=== PATIENT | female | born 1950 | race Caucasian/White ===

== ENCOUNTER → 2017-05-26 | Outpatient (CLI) | payer OTHER ==
[2017-05-26 08:40] LABS: BASOPHILS # (AUTO) 0.1 X10^3/uL (0.0-0.1); BASOPHILS % (AUTO) 0.7 % (0.2-1.0); EOSINOPHILS # (AUTO) 0.2 x10^3/uL (0.0-0.2); EOSINOPHILS % (AUTO) 1.6 % (0.9-2.9); HEMATOCRIT 37.5 % (36.0-47.0); HEMOGLOBIN 12.5 g/dL (12.0-16.0); LYMPHOCYTES # (AUTO) 2.2 X10^3/uL (1.3-2.9); LYMPHOCYTES % (AUTO) 21.5 % (21.0-51.0); MEAN CORPUSCULAR HEMOGLOBIN 27.2 pg (27.0-34.0); MEAN CORPUSCULAR HGB CONC 33.5 g/dL (33.0-35.0); MEAN CORPUSCULAR VOLUME 81.3 fL (80.0-100.0); MEAN PLATELET VOLUME 8.3 fL (7.4-11.0); MONOCYTES # (AUTO) 0.8 x10^3/uL (0.3-0.8); MONOCYTES % (AUTO) 7.5 % (0.0-13.0); NEUTROPHILS # (AUTO) 7.2 x10^3/uL (2.2-4.8); NEUTROPHILS % (AUTO) 68.7 % (42.0-75.0); PLATELET COUNT 228 X10^3/uL (150.0-450.0); RED BLOOD COUNT 4.61 X10^6/uL (3.5-5.4); RED CELL DISTRIBUTION WIDTH 14.2 % (11.6-16.5); WHITE BLOOD COUNT 10.5 X10^3/uL (3.6-10.0)
[2017-05-26 08:55] LABS: ALANINE AMINOTRANSFERASE 24 Units/L (12-78); ALBUMIN 3.6 g/dL (3.4-5.0); ALKALINE PHOSPHATASE 94 Units/L (46-116); ASPARTATE AMINO TRANSFERASE 19 Units/L (15-37); BLOOD UREA NITROGEN 19 mg/dL (7-18); CALCIUM 8.6 mg/dL (8.5-10.1); CARBON DIOXIDE 29.5 mmol/L (21-32); CHLORIDE 105 mmol/L (98-107); CHOL/HDL RATIO 4.4 (0.0-5.0); CHOLESTEROL 203 mg/dL (0-200); CREATININE 1.15 mg/dL (0.55-1.02); GLUCOSE 108 mg/dL (65-99); HDL CHOLESTEROL 46 mg/dL (40-60); SODIUM 141 mmol/L (136-145); TOTAL PROTEIN 7.7 g/dL (6.4-8.2); TRIGLYCERIDES 95 mg/dL (0-150); eGFR BLACK RACES > 60 (>60); eGFR NON BLACK RACES 50 (>60)
== END ==
LOC: LAB 08:27
PROVIDERS: ATTEND Nurse Practitioner Family
DX: E78.4 Other hyperlipidemia (principal); I10 Essential (primary) hypertension
CPT/HCPCS: 36415; 80053; 80061; 85025

== ENCOUNTER → 2017-08-21 | Outpatient (CLI) | payer OTHER ==
[2017-08-21 08:36] LABS: BASOPHILS # (AUTO) 0.1 X10^3/uL (0.0-0.1); BASOPHILS % (AUTO) 0.9 % (0.2-1.0); EOSINOPHILS # (AUTO) 0.2 x10^3/uL (0.0-0.2); EOSINOPHILS % (AUTO) 1.5 % (0.9-2.9); HEMATOCRIT 35.5 % (36.0-47.0); HEMOGLOBIN 11.8 g/dL (12.0-16.0); LYMPHOCYTES # (AUTO) 2.5 X10^3/uL (1.3-2.9); LYMPHOCYTES % (AUTO) 23.2 % (21.0-51.0); MEAN CORPUSCULAR HEMOGLOBIN 27.7 pg (27.0-34.0); MEAN CORPUSCULAR HGB CONC 33.3 g/dL (33.0-35.0); MEAN CORPUSCULAR VOLUME 83.1 fL (80.0-100.0); MEAN PLATELET VOLUME 8.5 fL (7.4-11.0); MONOCYTES # (AUTO) 0.6 x10^3/uL (0.3-0.8); NEUTROPHILS # (AUTO) 7.4 x10^3/uL (2.2-4.8); NEUTROPHILS % (AUTO) 68.4 % (42.0-75.0); PLATELET COUNT 260 X10^3/uL (150.0-450.0); RED BLOOD COUNT 4.27 X10^6/uL (3.5-5.4); RED CELL DISTRIBUTION WIDTH 14.5 % (11.6-16.5); WHITE BLOOD COUNT 10.8 X10^3/uL (3.6-10.0)
[2017-08-21 08:45] LABS: ALBUMIN 3.3 g/dL (3.4-5.0); BLOOD UREA NITROGEN 15 mg/dL (7-18); CALCIUM 9.1 mg/dL (8.5-10.1); CARBON DIOXIDE 29.3 mmol/L (21-32); CHLORIDE 105 mmol/L (98-107); CHOL/HDL RATIO 3.3 (0.0-5.0); CHOLESTEROL 140 mg/dL (0-200); COR CA(FOR HYPOALB) 9.7 mg/dL (8.5-10.1); CREATININE 1.12 mg/dL (0.55-1.02); HDL CHOLESTEROL 43 mg/dL (40-60); SODIUM 143 mmol/L (136-145); TRIGLYCERIDES 98 mg/dL (0-150); eGFR BLACK RACES > 60 (>60); eGFR NON BLACK RACES 51 (>60)
== END ==
LOC: LAB 08:11
PROVIDERS: ATTEND Nurse Practitioner Family
DX: E78.4 Other hyperlipidemia (principal); I10 Essential (primary) hypertension
CPT/HCPCS: 36415; 80061; 80069; 85025

== ENCOUNTER 2017-09-03 09:48 | Emergency (ER) | payer OTHER ==
[2017-09-03 09:52] VITALS: BMI 37.5
--- NOTE | 2017-09-03 10:21 | DR.DIZZY ---
HPI - Time seen Time seen: 10:00 - PCP Primary Care Physician: Max AGUILA - HPI Comment HPI Comment: HER SYMTOMS WORSE TODAY. NO SPEECH DISTURBANCES. BP ELEVATED CURRENTLY IN ED. - Complaint Chief Complaint Doctor Comments: ATAXIA AND DIZZINESS FRIDAY. WEAKNESS LEFT SIDE AND NUMBNESS LEFT ARM TODAY. Chief Complaint:: PT. STATES FRIDAY SHE STARTED BECOMING DIZZY AND HAVING BALANCE ISSUES. PT. STATES HER LEFT ARM FEELS NUMB AND SHE CAN'T GRASP OBJECTS. SHE STATES HER LEFT LEG FEELS WEAK. - Nurses Notes Reviewed Nurses Notes Review: Yes - Source History Provided: Patient - Mode of Arrival Mode of Arrival: Ambulatory - Timing Onset of Chief Complaint: 09/01/17 Came on: Suddenly - Duration Duration: Constant Duration: Days - Location of Weakness Weakness Location: Left, Arm, Leg - Context Onset: With light exertion Does pt take pot. toxic medication?: No History of: None Stroke Symptoms: Ataxia, Weakness of limb, Numbness of limbs, Dizziness - Severity Severity: Abnormal activity level - Modifying factors Worsens: Nothing - Associated signs and symptoms Associated Signs and Symptoms: Imbalance, Weak, Numb, Headache PMH - PMH Past Medical History: Yes Past Medical History: Arthritis, Hypertension Past Surgical History: Yes Surgical History: Tonsillectomy - Family History History of Family Medical Conditions: Yes Family Medical History: Cancer Family Medical History Comment: CVA - Social History Does patient currently use any type of tobacco product: No Have you used tobacco products in the last 12 months: No Type of Tobacco Use: None Does any household member use tobacco: No Alcohol Use: None Do you use any recreational Drugs:: No Lives With: Spouse Lives Where: Home - infectious screening In the last 2 months have you had wt loss of >10#?: NO Have you had fever, night sweats or hemotysis?: No Have you traveled outside the country in the last 6 months?: No Isolation: Standard ROS - Review of Systems Constitutional: Weakness. negative: Chills, Fever Eyes: negative: Eye Pain, Blurred Vision, Discharge, Photophobia ENTM: negative: Ear Pain, Nose Discharge, Nose Congestion, Throat Swelling Respiratoy: Non-Productive Cough, Short of Breath, Wheezing. negative: Productive Cough, Hemoptysis Cardiovascular: Chest Pain. negative: Edema, Palpitations, Syncope Gastrointestinal/Abdominal: negative: Abdominal Pain, Diarrhea, Nausea, Vomiting Genitourinary: negative: Dysuria, Frequency, Hematuria Neurological: Headache, Weakness, Dizziness Musculoskeletal: Back Pain, Joint Pain, Joint Swelling, Muscle Pain Integumentary: No Symptoms Reported Hematologic/Lymphatic: No Symptoms Reported Endocrine: No Symptoms Reported All Other Systems: Reviewed and Negative PE - Vital Signs Vitals: Temperature 97.9 F Pulse Rate [Apical] 58 Pulse Rate 46 Respiratory Rate 22 Blood Pressure [Right Arm] 151/65 Blood Pressure 194/81 O2 Sat by Pulse Oximetry 97 - General Limitations: No Limitations General Appearance: Alert - Head Head Exam: Normal Inspection - Eyes Eye exam: PERRL, EOMI. negative: Scleral Icterus, Conjunctival Injection, Nystagmus, Periorbital Swelling, Periorbital Tenderness Pupils: Regular, Round: Bilateral, Reactive: Bilateral Sclera/Conjunctival: Normal Inspection: Bilateral - ENT ENT Exam: Normal External Ear Exam - Neck Neck Exam: Trachea Midline - Chest Chest Inspection: Symmetric Chest Wall Rise - Respiratory Respiratory Exam: Normal Lung Sounds Bilat Respiratory Exam: Bilateral Clear to Auscultation - Cardiovascular Cardiovascular Exam: Regular Rate, Normal Rhythm, Normal Heart Sounds - Abdominal Exam Abdominal Exam: Normal Bowel Sounds, Soft. negative: Tenderness - Rectal Rectal Exam: Deferred - Extremeties Extremities Exam: Normal Inspection - Back Back Exam: Normal Inspection - Neurologic Neurological Exam: Alert, Oriented X3 Speech: Fluid Speech Cranial Nerve Exam: EOM Function (II, III, IV, ): Normal, Facial Sensation (V) : Normal, Facial Palsy (VII): Normal, Gag reflex (XI): Normal, Spinal Accessory Function (XI): Normal, Tongue Deviation: Normal Cerebellar Function: Ataxic Gait Motor Strength - LUE: 4/5 Motor Strength - RUE: 5/5 Motor Strength - LLE: 4/5 Motor Strength - RLE: 5/5 Upper Motor Neuron Exam: Babinski Sign: Normal DTR: achilles tendon (L): 4+, achilles tendon (R): 4+, brachioradialis (L): 4+, brachioradialis (R): 4+, Patellar (L): 4+, patellar (R): 4+ - Psychiatric Psychiatric Exam: Anxious - Skin Skin Exam: Normal Color MDM - Additional Information Additional Information Obtained From: Family - Differential Diagnosis Differential Diagnosis: Anemia, CVA, Dehydration, Dysrhythmia, Electrolyte disorder, Labyrinthitis, Meniere's disease, Myocardial Infarction, TIA, Vertigo - central, Vertigo- peripheral Course - Treatment Treatment: SEE ORDERS. - Consultation Consultation Comments: DR. RENTERIA WILL ADMIT PATIENT. - Education/Counseling Education/Counseling: Patient, Family, Education Educated On: Diagnosis, Needs for Follow Up ROR - Labs Reviewed Laboratory Results Reviewed?: Yes Result Diagrams: 09/04/17 03:55 09/04/17 03:55 Laboratory: WBC 12.4 X10^3/uL (3.6-10.0) H 09/04/17 03:55 RBC 4.03 X10^6/uL (3.5-5.4) 09/04/17 03:55 Hgb 11.4 g/dL (12.0-16.0) L 09/04/17 03:55 Hct 34.1 % (36.0-47.0) L 09/04/17 03:55 MCV 84.8 fL (80.0-100.0) 09/04/17 03:55 MCH 28.4 pg (27.0-34.0) 09/04/17 03:55 MCHC 33.5 g/dL (33.0-35.0) 09/04/17 03:55 RDW 14.3 % (11.6-16.5) 09/04/17 03:55 Plt Count 237 X10^3/uL (150.0-450.0) 09/04/17 03:55 MPV 9.0 fL (7.4-11.0) 09/04/17 03:55 Neut % 67.3 % (42.0-75.0) 09/04/17 03:55 Lymph % 25.8 % (21.0-51.0) 09/04/17 03:55 [place] % 5.4 % (0.0-13.0) 09/04/17 03:55 Eos % 1.1 % (0.9-2.9) 09/04/17 03:55 Baso % 0.4 % (0.2-1.0) 09/04/17 03:55 Neut # 8.3 x10^3/uL (2.2-4.8) H 09/04/17 03:55 Lymph # 3.2 X10^3/uL (1.3-2.9) H 09/04/17 03:55 [place] # 0.7 x10^3/uL (0.3-0.8) 09/04/17 03:55 Eos # 0.1 x10^3/uL (0.0-0.2) 09/04/17 03:55 Baso # 0.0 X10^3/uL (0.0-0.1) 09/04/17 03:55 Absolute Nucleated RBC 0.0 /100WBC 09/04/17 03:55 INR Target Range - 09/04/17 03:55 INR 1.06 (0.8-1.3) 09/04/17 03:55 PTT 35.2 SECONDS (22.9-36.5) 09/04/17 03:55 PTT Comment - 09/04/17 03:55 Sodium 143 mmol/L (136-145) 09/04/17 03:55 Corrected Sodium TNP 09/04/17 03:55 Potassium 3.7 mmol/L (3.5-5.1) 09/04/17 03:55 Chloride 106 mmol/L (98-107) 09/04/17 03:55 Carbon Dioxide 25.5 mmol/L (21-32) 09/04/17 03:55 BUN 21 mg/dL (7-18) H 09/04/17 03:55 Creatinine 1.10 mg/dL (0.55-1.02) H 09/04/17 03:55 Est GFR (MDRD) Af Amer > 60 (>60) 09/04/17 03:55 Est GFR (MDRD) Non-Af 52 (>60) L 09/04/17 03:55 Glucose 97 mg/dL (65-99) 09/04/17 03:55 Calcium 8.9 mg/dL (8.5-10.1) 09/04/17 03:55 Corrected Calcium 9.6 mg/dL (8.5-10.1) 09/04/17 03:55 Magnesium 2.2 mg/dL (1.7-2.9) 09/04/17 03:55 Total Bilirubin 0.40 mg/dL (0.2-1.0) 09/04/17 03:55 AST 14 Units/L (15-37) L 09/04/17 03:55 ALT 13 Units/L (12-78) 09/04/17 03:55 Alkaline Phosphatase 80 Units/L (46-116) 09/04/17 03:55 Creatine Kinase 42 Units/L (26-192) 09/03/17 22:40 CK-MB (CK-2) < 1.0 ng/mL (0-4.0) 09/03/17 22:40 CK/CKMB % Calc 2.4 % (<4) 09/03/17 22:40 Troponin I < 0.02 ng/mL (0-1.5) 09/03/17 22:40 Total Protein 6.8 g/dL (6.4-8.2) 09/04/17 03:55 Albumin 3.1 g/dL (3.4-5.0) L 09/04/17 03:55 Globulin 3.7 g/dL (2.5-4.5) 09/04/17 03:55 Albumin/Globulin Ratio 0.8 Ratio (1.1-2.1) L 09/04/17 03:55 Triglycerides 84 mg/dL (0-150) 09/04/17 03:55 Cholesterol 146 mg/dL (0-200) 09/04/17 03:55 LDL Cholesterol, Calc 87 mg/dL (0-100) 09/04/17 03:55 HDL Cholesterol 42 mg/dL (40-60) 09/04/17 03:55 Cholesterol/HDL Ratio 3.5 (0.0-5.0) 09/04/17 03:55 Specimen Type Clean catch urine 09/03/17 13:19 Urine Color Yellow (YELLOW) 09/03/17 13:19 Urine Appearance Clear (CLEAR) 09/03/17 13:19 Urine pH 5.0 (5.0 - 8.0) 09/03/17 13:19 Ur Specific [place] 1.020 (1.000-1.030) 09/03/17 13:19 Urine Protein Negative (NEGATIVE) 09/03/17 13:19 Urine Glucose (UA) Negative (NEGATIVE) 09/03/17 13:19 Urine Ketones Negative (NEGATIVE) 09/03/17 13:19 Urine Occult Blood Negative (NEGATIVE) 09/03/17 13:19 Urine Nitrite Negative (NEGATIVE) 09/03/17 13:19 Urine Bilirubin Negative (NEGATIVE) 09/03/17 13:19 Urine Urobilinogen Normal (NORMAL) 09/03/17 13:19 Ur Leukocyte Esterase 1+ (NEGATIVE) 09/03/17 13:19 Urine RBC 0-2 /HPF (NEGATIVE) 09/03/17 13:19 Urine WBC 3-5 /HPF (NEGATIVE) 09/03/17 13:19 Ur Squamous Epith Cells Rare /HPF (NEGATIVE) 09/03/17 13:19 Urine Bacteria Trace /HPF (NEGATIVE) 09/03/17 13:19 Ur Culture Indicated? No/not indicated 09/03/17 13:19 - XRAY XRAY Interpreted by: Radiologist XRAY Findings: REPORT DISCUSS WITH PATIENT AND HER . - EKG Rhythm: NSR (EKG NOTED.) - Diagnosis Discharge Problem: Left-sided weakness, Ataxia, Dizziness Chest pain Qualifiers: Chest pain type: unspecified Qualified Code(s): R07.9 - Chest pain, unspecified Hypertension Qualifiers: Hypertension type: essential hypertension Qualified Code(s): I10 - Essential ( primary) hypertension - Discharge Plan Disposition: 09 ADMITTED INPATIENT Condition: Stable - Follow ups/Referrals - Instructions
[2017-09-03 10:41] LABS: BASOPHILS # (AUTO) 0.1 X10^3/uL (0.0-0.1); BASOPHILS % (AUTO) 0.8 % (0.2-1.0); EOSINOPHILS # (AUTO) 0.1 x10^3/uL (0.0-0.2); HEMOGLOBIN 11.9 g/dL (12.0-16.0); LYMPHOCYTES # (AUTO) 2.3 X10^3/uL (1.3-2.9); LYMPHOCYTES % (AUTO) 19.5 % (21.0-51.0); MEAN CORPUSCULAR HEMOGLOBIN 27.7 pg (27.0-34.0); MEAN PLATELET VOLUME 8.6 fL (7.4-11.0); MONOCYTES # (AUTO) 0.7 x10^3/uL (0.3-0.8); MONOCYTES % (AUTO) 5.5 % (0.0-13.0); NEUTROPHILS # (AUTO) 8.8 x10^3/uL (2.2-4.8); NEUTROPHILS % (AUTO) 73.2 % (42.0-75.0); PLATELET COUNT 252 X10^3/uL (150.0-450.0); RED BLOOD COUNT 4.29 X10^6/uL (3.5-5.4); RED CELL DISTRIBUTION WIDTH 14.4 % (11.6-16.5)
--- NOTE | 2017-09-03 10:56 | RAD ---
Examination: Portable AP chest History: Ataxia, weakness Findings: Cardiomegaly is present, accentuated by nonstandard projection. The lungs are clear. There is no evidence for pneumonia, pulmonary edema or large pleural effusion. Impression: Cardiomegaly. Reported By:
--- NOTE | 2017-09-03 11:04 | CT ---
HISTORY: Ataxia, left-sided weakness Study: CT head without contrast Comparison: None Technique: Axial noncontrast images with coronal and sagittal reformats. Dose reduction procedures we re used with mA/kv adjusted for body size. Findings: The ventricles are normal in size, shape, and position. There is decreased attenuation in the periven tricular white matter suggestive of small vessel vascular disease. There is evidence for an old CVA i nvolving the right basal ganglia with superior extension into the right centrum semiovale. There is n o definite evidence for visible recent CVA, hemorrhage, mass lesion, or extra-axial fluid collection. However, if acute CVA or extension of the patient's old CVA is a strong clinical consideration MRI w ith diffusion imaging is recommended for further evaluation. IMPRESSION: No definite acute intracranial abnormality. However see recommendation as above. 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
[2017-09-03 11:23] LABS: ALANINE AMINOTRANSFERASE 14 Units/L (12-78); ALBUMIN 3.3 g/dL (3.4-5.0); ALKALINE PHOSPHATASE 92 Units/L (46-116); ASPARTATE AMINO TRANSFERASE 16 Units/L (15-37); BLOOD UREA NITROGEN 22 mg/dL (7-18); CALCIUM 9.3 mg/dL (8.5-10.1); CARBON DIOXIDE 27.1 mmol/L (21-32); CHLORIDE 106 mmol/L (98-107); CKMB % 2.3 % (<4); COR CA(FOR HYPOALB) 9.9 mg/dL (8.5-10.1); CREATINE KINASE 44 Units/L (26-192); CREATINE KINASE MB < 1.0 ng/mL (0-4.0); CREATININE 1.18 mg/dL (0.55-1.02); SODIUM 141 mmol/L (136-145); TOTAL PROTEIN 7.4 g/dL (6.4-8.2); TROPONIN I < 0.02 ng/mL (0-1.5); eGFR BLACK RACES 59 (>60); eGFR NON BLACK RACES 48 (>60)
[2017-09-03 13:28] LABS: BILIRUBIN,URINE NEGATIVE (NEGATIVE); BLOOD/HEMOGLOBIN,URINE NEGATIVE (NEGATIVE); GLUCOSE, URINE NEGATIVE (NEGATIVE); KETONES,URINE NEGATIVE (NEGATIVE); LEUKOCYTE ESTERASE ,URINE 1+ (NEGATIVE); NITRITES,URINE NEGATIVE (NEGATIVE); PROTEIN,URINE NEGATIVE (NEGATIVE); UROBILINOGEN,URINE NORMAL (NORMAL)
[2017-09-03 13:35] LABS: APPEARANCE,URINE CLEAR (CLEAR); COLOR,URINE YELLOW (YELLOW)
[2017-09-03 13:36] LABS: BACTERIA,URINE TRACE /HPF (NEGATIVE); RBC,URINE 0-2 /HPF (NEGATIVE); SQUAMOUS EPITHELIAL CELL,UR RARE /HPF (NEGATIVE)
[2017-09-03] MEDS: NS 1000 ML 1,000 ML IV SCH (17:34)
[2017-09-03 17:38] LABS: CKMB % 2.4 % (<4); CREATINE KINASE 42 Units/L (26-192); CREATINE KINASE MB < 1.0 ng/mL (0-4.0); TROPONIN I < 0.02 ng/mL (0-1.5)
[2017-09-03 23:10] LABS: CKMB % 2.4 % (<4); CREATINE KINASE 42 Units/L (26-192); CREATINE KINASE MB < 1.0 ng/mL (0-4.0); TROPONIN I < 0.02 ng/mL (0-1.5)
[2017-09-04] MEDS: NS 1000 ML 1,000 ML IV SCH (04:42)
[2017-09-04 06:07] LABS: BASOPHILS % (AUTO) 0.4 % (0.2-1.0); EOSINOPHILS # (AUTO) 0.1 x10^3/uL (0.0-0.2); EOSINOPHILS % (AUTO) 1.1 % (0.9-2.9); HEMATOCRIT 34.1 % (36.0-47.0); HEMOGLOBIN 11.4 g/dL (12.0-16.0); LYMPHOCYTES # (AUTO) 3.2 X10^3/uL (1.3-2.9); LYMPHOCYTES % (AUTO) 25.8 % (21.0-51.0); MEAN CORPUSCULAR HEMOGLOBIN 28.4 pg (27.0-34.0); MEAN CORPUSCULAR HGB CONC 33.5 g/dL (33.0-35.0); MEAN CORPUSCULAR VOLUME 84.8 fL (80.0-100.0); MONOCYTES # (AUTO) 0.7 x10^3/uL (0.3-0.8); MONOCYTES % (AUTO) 5.4 % (0.0-13.0); NEUTROPHILS # (AUTO) 8.3 x10^3/uL (2.2-4.8); NEUTROPHILS % (AUTO) 67.3 % (42.0-75.0); PLATELET COUNT 237 X10^3/uL (150.0-450.0); RED BLOOD COUNT 4.03 X10^6/uL (3.5-5.4); RED CELL DISTRIBUTION WIDTH 14.3 % (11.6-16.5); WHITE BLOOD COUNT 12.4 X10^3/uL (3.6-10.0)
[2017-09-04 06:44] LABS: ALANINE AMINOTRANSFERASE 13 Units/L (12-78); ALBUMIN 3.1 g/dL (3.4-5.0); ALKALINE PHOSPHATASE 80 Units/L (46-116); ASPARTATE AMINO TRANSFERASE 14 Units/L (15-37); BLOOD UREA NITROGEN 21 mg/dL (7-18); CALCIUM 8.9 mg/dL (8.5-10.1); CARBON DIOXIDE 25.5 mmol/L (21-32); CHLORIDE 106 mmol/L (98-107); CHOL/HDL RATIO 3.5 (0.0-5.0); CHOLESTEROL 146 mg/dL (0-200); COR CA(FOR HYPOALB) 9.6 mg/dL (8.5-10.1); HDL CHOLESTEROL 42 mg/dL (40-60); MAGNESIUM 2.2 mg/dL (1.7-2.9); SODIUM 143 mmol/L (136-145); TOTAL PROTEIN 6.8 g/dL (6.4-8.2); TRIGLYCERIDES 84 mg/dL (0-150); eGFR BLACK RACES > 60 (>60); eGFR NON BLACK RACES 52 (>60)
[2017-09-04] MEDS ORDERED: ASPIRIN PO SCH (14:00)
[2017-09-04] MEDS ORDERED: PLAVIX PO SCH (14:00)
[2017-09-04] MEDS ORDERED: PLAVIX ONE (15:16)
[2017-09-04] MEDS ORDERED: ASPIRIN ONE (15:16)
--- NOTE | 2017-09-04 16:10 | VAS ---
HISTORY: Altered mental status, old CVA Study: Carotid ultrasound Comparison: None Technique: Multiple sonographic images of the carotid system were obtained bilaterally. Findings: The peak systolic velocity of the right ICA is 50 centimeters/second. The peak systolic velocity of t he left ICA is 76 centimeters/second. The ICA/CCA ratio on the right is 0.8. The ICA/CCA ratio on the left is 1.6. Bilateral antegrade vertebral flow is noted. IMPRESSION: No hemodynamically significant stenosis is appreciated. Reported By:
[2017-09-04 16:12] VITALS: BP 181/79
--- NOTE | 2017-09-11 08:33 | PCM.DCPLAN ---
Discharge Summary - Admission Date Date of Admission: 09/03/17 - Discharge Date Discharge Date: 09/04/17 - Admission Diagnoses (1) Ataxia Status: Acute (2) Chest pain Status: Acute (3) Dizziness Status: Acute (4) Hypertension Status: Acute (5) Left-sided weakness Status: Acute - Discharge Diagnoses Discharge Diagnosis: SAME ADMISSION AND INCLUDE TIA WITH HISTORY OF CVA - Discharge Medications Discharge Medications: Atenolol [TENORMIN 25 mg *] 1 tab PO DAILY 09/03/17 [History] Enalapril/Hydrochlorothiazide [Enalapril-Hctz 10-25 mg Tablet] 1 tab PO DAILY [History] Furosemide [LASIX TAB 20 MG *] 1 tab PO DAILY PRN 09/03/17 [History] Meloxicam 1 tab PO BID PRN 09/03/17 [History] Tramadol HCl [ULTRAM 50 MG *] 2 tab PO Q8H PRN 09/03/17 [History] Aspirin [ASPIRIN 325 MG *] 325 mg PO DAILY #60 tab 09/04/17 [Rx] Clopidogrel Bisulfate [PLAVIX TAB 75 MG *] 75 mg PO DAILY #60 tab 09/04/17 [Rx] - Hospital Course Vital Signs: Temperature 97.9 F Pulse Rate [Left Brachial] 65 Pulse Rate [Apical] 64 Pulse Rate 46 Respiratory Rate 20 Blood Pressure [Left Arm] 181/79 Blood Pressure [Right Arm] 146/71 Blood Pressure 194/81 O2 Sat by Pulse Oximetry 98 Latest Lab Results: Laboratory Last Values WBC 12.4 X10^3/uL (3.6-10.0) H 09/04/17 03:55 RBC 4.03 X10^6/uL (3.5-5.4) 09/04/17 03:55 Hgb 11.4 g/dL (12.0-16.0) L 09/04/17 03:55 Hct 34.1 % (36.0-47.0) L 09/04/17 03:55 MCV 84.8 fL (80.0-100.0) 09/04/17 03:55 MCH 28.4 pg (27.0-34.0) 09/04/17 03:55 MCHC 33.5 g/dL (33.0-35.0) 09/04/17 03:55 RDW 14.3 % (11.6-16.5) 09/04/17 03:55 Plt Count 237 X10^3/uL (150.0-450.0) 09/04/17 03:55 MPV 9.0 fL (7.4-11.0) 09/04/17 03:55 Neut % 67.3 % (42.0-75.0) 09/04/17 03:55 Lymph % 25.8 % (21.0-51.0) 09/04/17 03:55 [place] % 5.4 % (0.0-13.0) 09/04/17 03:55 Eos % 1.1 % (0.9-2.9) 09/04/17 03:55 Baso % 0.4 % (0.2-1.0) 09/04/17 03:55 Neut # 8.3 x10^3/uL (2.2-4.8) H 09/04/17 03:55 Lymph # 3.2 X10^3/uL (1.3-2.9) H 09/04/17 03:55 [place] # 0.7 x10^3/uL (0.3-0.8) 09/04/17 03:55 Eos # 0.1 x10^3/uL (0.0-0.2) 09/04/17 03:55 Baso # 0.0 X10^3/uL (0.0-0.1) 09/04/17 03:55 Absolute Nucleated RBC 0.0 /100WBC 09/04/17 03:55 INR Target Range - 09/04/17 03:55 INR 1.06 (0.8-1.3) 09/04/17 03:55 PTT 35.2 SECONDS (22.9-36.5) 09/04/17 03:55 PTT Comment - 09/04/17 03:55 Sodium 143 mmol/L (136-145) 09/04/17 03:55 Corrected Sodium TNP 09/04/17 03:55 Potassium 3.7 mmol/L (3.5-5.1) 09/04/17 03:55 Chloride 106 mmol/L (98-107) 09/04/17 03:55 Carbon Dioxide 25.5 mmol/L (21-32) 09/04/17 03:55 BUN 21 mg/dL (7-18) H 09/04/17 03:55 Creatinine 1.10 mg/dL (0.55-1.02) H 09/04/17 03:55 Est GFR (MDRD) Af Amer > 60 (>60) 09/04/17 03:55 Est GFR (MDRD) Non-Af 52 (>60) L 09/04/17 03:55 Glucose 97 mg/dL (65-99) 09/04/17 03:55 Calcium 8.9 mg/dL (8.5-10.1) 09/04/17 03:55 Corrected Calcium 9.6 mg/dL (8.5-10.1) 09/04/17 03:55 Magnesium 2.2 mg/dL (1.7-2.9) 09/04/17 03:55 Total Bilirubin 0.40 mg/dL (0.2-1.0) 09/04/17 03:55 AST 14 Units/L (15-37) L 09/04/17 03:55 ALT 13 Units/L (12-78) 09/04/17 03:55 Alkaline Phosphatase 80 Units/L (46-116) 09/04/17 03:55 Creatine Kinase 42 Units/L (26-192) 09/03/17 22:40 CK-MB (CK-2) < 1.0 ng/mL (0-4.0) 09/03/17 22:40 CK/CKMB % Calc 2.4 % (<4) 09/03/17 22:40 Troponin I < 0.02 ng/mL (0-1.5) 09/03/17 22:40 Total Protein 6.8 g/dL (6.4-8.2) 09/04/17 03:55 Albumin 3.1 g/dL (3.4-5.0) L 09/04/17 03:55 Globulin 3.7 g/dL (2.5-4.5) 09/04/17 03:55 Albumin/Globulin Ratio 0.8 Ratio (1.1-2.1) L 09/04/17 03:55 Triglycerides 84 mg/dL (0-150) 09/04/17 03:55 Cholesterol 146 mg/dL (0-200) 09/04/17 03:55 LDL Cholesterol, Calc 87 mg/dL (0-100) 09/04/17 03:55 HDL Cholesterol 42 mg/dL (40-60) 09/04/17 03:55 Cholesterol/HDL Ratio 3.5 (0.0-5.0) 09/04/17 03:55 Specimen Type Clean catch urine 09/03/17 13:19 Urine Color Yellow (YELLOW) 09/03/17 13:19 Urine Appearance Clear (CLEAR) 09/03/17 13:19 Urine pH 5.0 (5.0 - 8.0) 09/03/17 13:19 Ur Specific [place] 1.020 (1.000-1.030) 09/03/17 13:19 Urine Protein Negative (NEGATIVE) 09/03/17 13:19 Urine Glucose (UA) Negative (NEGATIVE) 09/03/17 13:19 Urine Ketones Negative (NEGATIVE) 09/03/17 13:19 Urine Occult Blood Negative (NEGATIVE) 09/03/17 13:19 Urine Nitrite Negative (NEGATIVE) 09/03/17 13:19 Urine Bilirubin Negative (NEGATIVE) 09/03/17 13:19 Urine Urobilinogen Normal (NORMAL) 09/03/17 13:19 Ur Leukocyte Esterase 1+ (NEGATIVE) 09/03/17 13:19 Urine RBC 0-2 /HPF (NEGATIVE) 09/03/17 13:19 Urine WBC 3-5 /HPF (NEGATIVE) 09/03/17 13:19 Ur Squamous Epith Cells Rare /HPF (NEGATIVE) 09/03/17 13:19 Urine Bacteria Trace /HPF (NEGATIVE) 09/03/17 13:19 Ur Culture Indicated? No/not indicated 09/03/17 13:19 Hospital Course: THE PATIENT IS A 67YO FEMALE WHO PRESENTS TO THE ED WITH ATAXIA AND DIZZINESS FRIDAY. WEAKNESS LEFT SIDE AND NUMBNESS LEFT ARM TODAY. PT. STATES FRIDAY SHE STARTED BECOMING DIZZY AND HAVING BALANCE ISSUES. PT. STATES HER LEFT ARM FEELS NUMB AND SHE CAN'T GRASP OBJECTS. SHE STATES HER LEFT LEG FEELS WEAK. PATIENT ADMITTED FOR FURTHER FOLLOW UP. PATIENT CT DID NOT REVEAL ACUTE EVENT. DOES SHOW OLD CVA. CAROTID US WITH NO STENOSIS. PATIENT HAD IMPROVEMENT OF SYMPTOMS AND WAS DISCHARGED HOME TO BE FOLLOWED ON OP BASIS. - Discharge Plan Disposition: HOME, SELF-CARE Condition: Stable Prescriptions: Aspirin [ASPIRIN 325 MG *] 325 mg PO DAILY #60 tab Clopidogrel Bisulfate [PLAVIX TAB 75 MG *] 75 mg PO DAILY #60 tab - Follow ups/Referrals Follow ups/Referrals: HEIDE AGUILA [Primary Care Provider] - 3 days - Instructions Instructions: Near-Syncope, Transient Ischemic Attack, [id number]
== END 2017-09-04 17:04 | disposition home or self-care (01) ==
LOC: ER 09:59 → MED/SURG 14:05
PROVIDERS: ADMIT Internal Medicine; ATTEND Internal Medicine
DX: R27.0 Ataxia, unspecified (principal); R07.89 Other chest pain; I10 Essential (primary) hypertension; R53.1 Weakness; G45.9 Transient cerebral ischemic attack, unspecified; Z86.73 Personal history of transient ischemic attack (TIA), and cerebral infarction without residual deficits; R20.0 Anesthesia of skin; I51.7 Cardiomegaly; R94.31 Abnormal electrocardiogram [ECG] [EKG]
CPT/HCPCS: 36415; 70450; 71010; 80053; 80061; 81001; 82550; 82553; 83735; 84484; 85025; 85610; 85730; 93005; 93010; 93880; 94760; 96365; 99217; 99284; 99285; A4222; G0378

== ENCOUNTER → 2017-09-17 | Outpatient (CLI) | payer OTHER ==
[2017-09-04 16:12] VITALS: BP 181/79
--- NOTE | 2017-09-17 15:40 | MRI ---
STUDY: MRI OF THE BRAIN WITHOUT AND WITH GADOLINIUM HISTORY: Unsteady gait. Patient states she may have had another stroke. Technique: Multiplanar multi-sequence MRI of the brain was obtained utilizing standard departmental p rotocol. Sagittal and axial T1, axial T2, FLAIR, diffusion (DWI/ADC) images through the brain were pe rformed. 20 cc of Omniscan was administered intravenously without reported complication following acquisition of informed written consent. Post gadolinium axial and coronal T1 weighted images were also performed and reviewed. Comparison: Head CT dated September 03, 2017. Findings: Pre gadolinium brain: The sulci, cisterns and ventricles are prominent consistent with diffuse volume loss. There are confluent and scattered foci of T2 prolongation in the periventricular and subcortic al white matter of both hemispheres. This is a nonspecific finding which likely represents microangio pathic change in a patient of this age. There is a focus of T2 shine through extending from the right periventricular montoya radiata into the anterior superior aspect of the right thalamus. There is an old infarct with encephalomalacia in the right occipital lobe. There is no evidence of acute hemorrhage, mass, mass effect, or midline shift. There are no abnormal intra-axial or extra-axial fluid collections. The major intracranial vascular flow voids appear intact. The right vertebral artery is dominant. Post gadolinium brain: Following the uneventful administration of intravenous gadolinium, there is a small blush of enhancement in the right periventricular white matter at the site of infarction. Addit ionally, there is a curvilinear focus of enhancement extending from the area of infarction, anteriorl y and inferiorly towards the thalamus, and then towards the medial right temporal lobe. This may repr esent an associated developmental venous anomaly. Some intrinsic T1 hyperintensity is also noted with in the anterior superior right thalamus. IMPRESSION: 1. Subacute to early chronic infarct in the right periventricular montyoa radiata with extension into the anterior superior aspect of the right thalamus. 2. Focus of abnormal enhancement in the periventricular white matter of the right posterior frontal c carloz radiata, with extension towards thalamus and right mesial temporal lobe. The presence of underl elizabeth intrinsic T1 hyperintensity suggests the possibility of either mineralization, or methemoglobin distribution. Follow-up imaging with MRI using gradient echo images may be helpful to clarify this fi nding. 3. Old infarct with encephalomalacia in the right occipital lobe. 4. Nonspecific white matter change and volume loss. Reported By:
== END ==
LOC: RAD 10:28
PROVIDERS: ATTEND Nurse Practitioner Family
DX: R26.89 Other abnormalities of gait and mobility (principal)
CPT/HCPCS: 70553

== ENCOUNTER → 2018-01-08 | Outpatient (CLI) | payer OTHER ==
[2018-01-08 09:46] LABS: BASOPHILS # (AUTO) 0.1 X10^3/uL (0.0-0.1); BASOPHILS % (AUTO) 0.8 % (0.2-1.0); EOSINOPHILS # (AUTO) 0.1 x10^3/uL (0.0-0.2); HEMATOCRIT 33.2 % (36.0-47.0); LYMPHOCYTES # (AUTO) 2.9 X10^3/uL (1.3-2.9); LYMPHOCYTES % (AUTO) 22.6 % (21.0-51.0); MEAN CORPUSCULAR HEMOGLOBIN 28.2 pg (27.0-34.0); MEAN CORPUSCULAR VOLUME 85.7 fL (80.0-100.0); MEAN PLATELET VOLUME 8.2 fL (7.4-11.0); MONOCYTES # (AUTO) 0.8 x10^3/uL (0.3-0.8); MONOCYTES % (AUTO) 6.2 % (0.0-13.0); NEUTROPHILS % (AUTO) 69.4 % (42.0-75.0); PLATELET COUNT 267 X10^3/uL (150.0-450.0); RED BLOOD COUNT 3.88 X10^6/uL (3.5-5.4); RED CELL DISTRIBUTION WIDTH 13.9 % (11.6-16.5); WHITE BLOOD COUNT 12.9 X10^3/uL (3.6-10.0)
[2018-01-08 10:08] LABS: ALANINE AMINOTRANSFERASE 18 Units/L (12-78); ALBUMIN 3.2 g/dL (3.4-5.0); ALKALINE PHOSPHATASE 101 Units/L (46-116); ASPARTATE AMINO TRANSFERASE 12 Units/L (15-37); BLOOD UREA NITROGEN 19 mg/dL (7-18); CALCIUM 8.4 mg/dL (8.5-10.1); CARBON DIOXIDE 28.2 mmol/L (21-32); CHLORIDE 106 mmol/L (98-107); CHOL/HDL RATIO 3.7 (0.0-5.0); CHOLESTEROL 152 mg/dL (0-200); CREATININE 1.12 mg/dL (0.55-1.02); HDL CHOLESTEROL 41 mg/dL (40-60); SODIUM 143 mmol/L (136-145); TOTAL PROTEIN 7.1 g/dL (6.4-8.2); TRIGLYCERIDES 89 mg/dL (0-150); URIC ACID 9.3 mg/dL (2.6-6.0); eGFR BLACK RACES > 60 (>60); eGFR NON BLACK RACES 51 (>60)
[2018-01-08 10:42] LABS: ERYTHROCYTE SEDIMENTATION RATE 42 MM/HOUR (0-20)
== END ==
LOC: LAB 09:23
PROVIDERS: ATTEND Nurse Practitioner Family
DX: I10 Essential (primary) hypertension (principal); M10.9 Gout, unspecified; E78.4 Other hyperlipidemia; R70.0 Elevated erythrocyte sedimentation rate; R79.82 Elevated C-reactive protein (CRP)
CPT/HCPCS: 36415; 80053; 80061; 84550; 85025; 85652; 86140

== ENCOUNTER → 2018-01-13 | Outpatient (CLI) | payer OTHER ==
--- NOTE | 2018-01-13 11:58 | MG ---
HISTORY: SCREENING Comparison: 10/29/2016 FINDINGS: Bilateral CC and MLO projections of the right and left breast were obtained. Scattered fibroglandula r tissue is seen to be present. No significant architectural distortion, mass or clustered microcalc ifications can be observed to suggest malignancy. No skin thickening or nipple retraction is appreci ated. No pathological lymphadenopathy can be identified. Benign-appearing calcifications scattered throughout the right and left breasts are observed. IMPRESSION: NO RADIOGRAPHIC EVIDENCE OF MALIGNANCY. ACR CATEGORY 2 - benign findings. FOLLOW-UP EXAM 1 YEAR. Diagnostic CAD was utilized and reviewed. * 0 (ZERO) - ASSESSMENT INCOMPLETE; ADDITIONAL IMAGING IS NEEDED. * 1/ (ONE) - NEGATIVE. * 2/II (TWO) - BENIGN FINDINGS. * 3/III (THREE) - PROBABLY BENIGN FINDING; SHORT INTERVAL FOLLOW-UP SUGGESTED. * 4/IV (FOUR) - SUSPICIOUS ABNORMALITY; BIOPSY SHOULD BE CONSIDERED. * 5/V - HIGHLY SUSPICIOUS OF MALIGNANCY; BIOPSY SHOULD BE PERFORMED. A NEGATIVE X-RAY REPORT SHOULD NOT DELAY BIOPSY IF A DOMINANT OR CLINICALLY SUSPICIOUS MASS IS PRESENT; 4 TO 8 PERCENT OF CANCERS ARE NOT IDENTIFIED BY X-RAY. A NEGA TIVE REPORT MAY REINFORCE THE CLINICAL IMPRESSION. ADENOSIS AND DENSE BREASTS MAY OBSCURE AN UNDERLY ING NEOPLASM. Reported By:
== END ==
LOC: LAB 08:22
PROVIDERS: ATTEND Nurse Practitioner Family
DX: E87.6 Hypokalemia (principal); Z12.31 Encounter for screening mammogram for malignant neoplasm of breast
CPT/HCPCS: 36415; 77067; 84132

== ENCOUNTER 2021-12-23 15:46 | Observation (INO) ==
[2021-12-23] MEDS ORDERED: LOPRESSOR INJ 5 MG AMP IVP ONE (16:10)
--- NOTE | 2021-12-23 16:10 | DR.WEAKNES ---
HPI Time Seen Time Seen by Provider: 12/23/21 16:05 Primary Care Physician Primary Care Physician: HERBERT HPI Comment HPI Comment: A 71 y/o female presents with c/o Lt. facial droop and LUE arm weakness. The symptoms started since yestrday afternoon. She has been falling since yesterday also. Complaints Chief Complaint:: PT AND FAMILY C/O PATIENT IS HAVING LT SIDED FACIAL DROOPING WITH LT SIDED WEAKNESS. PATIENT STATES SHE NOTICED WITH LT HAND WEAKNESS YESTERDAY. PATIENT STATES SINCE THE WEAKNESS HAS STARTED SHE HAS BEEN FALLING SEVERAL TIMES. KARISHMA DENIES HITTING HER HEAD Reviewed Nurses Notes Reviewed: Yes Source History Provided: Patient Mode of Arrival Mode of Arrival: Wheelchair Timing Onset of Chief Complaint: 12/22/21 Symptom Onset: Known Onset of Symptoms Start Date: 12/22/21 Duration Duration: Constant Context Onset: Spontaneous Symptoms: Paralysis and Weakness History of: None Stroke Symptoms: Weakness of limb Location Weakness Location: Left and Arm Associated Signs and Symptoms Associated Signs and Symptoms: None PMH PMH Past Medical History: Yes Past Medical History: Arthritis and Hypertension Past Medical History Comment: TIA Past Surgical History: Yes Surgical History: Ortho Surgery and Tonsillectomy Family History History of Family Medical Conditions: Yes Family Medical History: Diabetes Mellitus, Cancer, [place], Coronary Artery Disease and Hypertension Social History Does any household member use tobacco: No Alcohol Use: None Do you use any recreational Drugs:: No Lives With: Spouse and Family Lives Where: Home Travel Risk Coronavirus risk:travel/contact w/high risk person: No Has patient experienced Coronavirus symptoms: No Infectious screening In the last 2 months have you had wt loss of >10#?: NO Have you had fever, night sweats or hemotysis?: No Have you traveled outside the country in the last 6 months?: No Isolation: Standard ROS Review of Systems Constitutional: No Symptoms Reported Eyes: No Symptoms Reported ENTM: No Symptoms Reported Respiratoy: No Symptoms Reported Cardiovascular: No Symptoms Reported Gastrointestinal/Abdominal: No Symptoms Reported Genitourinary: No Symptoms Reported Neurological: Weakness (LUE ) Musculoskeletal: Other (arm weakness, Lt. ) Integumentary: No Symptoms Reported Hematologic/Lymphatic: No Symptoms Reported Endocrine: No Symptoms Reported Psychiatric: No Symptoms Reported PE Vital Signs Vitals: Temperature 97.9 F Pulse Rate 60 Respiratory Rate 20 Blood Pressure [Left Arm] 142/78 Blood Pressure [Right Arm] 146/71 Blood Pressure 178/74 O2 Sat by Pulse Oximetry 98 General Limitations: No Limitations General Appearance: Alert and In No Apparent Distress Head Head Exam: Atraumatic, Normocephalic and Other (Lt. sided facial droop) Eyes Eye exam: Normal Appearance, PERRL and EOMI ENT ENT Exam: Normal Exam, Normal Oropharynx, Normal External Ear Exam, Mucous Membranes Moist and TM's Normal Bilaterally Neck Neck Exam: Normal Inspection, Full ROM and Trachea Midline Chest Chest Inspection: Normal Inspection and Symmetric Chest Wall Rise Respiratory Respiratory Exam: Normal Lung Sounds Bilat Cardiovascular Cardiovascular Exam: Regular Rate, Normal Rhythm, Normal Heart Sounds, +S1 and +S2 Abdominal Exam Abdominal Exam: Normal Inspection, Normal Bowel Sounds and Soft Extremities Extremities Exam: Normal Inspection and Other (motor strength LUE: 3/5, RUE: 5/5) Back Back Exam: Normal Inspection and Full ROM Neurologic Neurological Exam: Alert and Oriented X3 Patient Oriented To: Person, Place and Time Speech: Fluid Speech Cerebellar Function: Finger to Nose: Normal Psychiatric Psychiatric Exam: Normal Affect and Normal Mood Skin Skin Exam: Intact COURSE Reevaluation 1st: Unchanged Education/Counseling Education/Counseling: Patient, Education and Counseling Educated On: Treatment, Diagnosis, Prognosis and Needs for Follow Up ROR Labs Reviewed Result Diagrams: 12/23/21 16:05 12/23/21 16:05 Laboratory: WBC 15.5 X10^3/uL (3.6-10.0) H 12/23/21 16:05 RBC 4.57 X10^6/uL (3.5-5.4) 12/23/21 16:05 Hgb 12.4 g/dL (12.0-16.0) 12/23/21 16:05 Hct 37.9 % (36.0-47.0) 12/23/21 16:05 MCV 83.0 fL (80.0-100.0) 12/23/21 16:05 MCH 27.2 pg (27.0-34.0) 12/23/21 16:05 MCHC 32.8 g/dL (33.0-35.0) L 12/23/21 16:05 RDW 15.0 % (11.6-16.5) 12/23/21 16:05 Plt Count 293 X10^3/uL (150.0-450.0) 12/23/21 16:05 MPV 8.2 fL (7.4-11.0) 12/23/21 16:05 Neut % (Auto) 67.0 % (42.0-75.0) 12/23/21 16:05 Lymph % (Auto) 21.3 % (21.0-51.0) 12/23/21 16:05 [place] % (Auto) 8.1 % (0.0-13.0) 12/23/21 16:05 Eos % (Auto) 3.0 % (0.9-2.9) H 12/23/21 16:05 Baso % (Auto) 0.6 % (0.2-1.0) 12/23/21 16:05 Neut # (Auto) 10.4 x10^3/uL (2.2-4.8) H 12/23/21 16:05 Lymph # (Auto) 3.3 X10^3/uL (1.3-2.9) H 12/23/21 16:05 [place] # (Auto) 1.3 x10^3/uL (0.3-0.8) H 12/23/21 16:05 Eos # (Auto) 0.5 x10^3/uL (0.0-0.2) H 12/23/21 16:05 Baso # (Auto) 0.1 X10^3/uL (0.0-0.1) 12/23/21 16:05 Absolute Nucleated RBC 0.1 /100WBC 12/23/21 16:05 PT 12.8 SECONDS (11.8-14.3) 12/23/21 16:05 INR Target Range - 12/23/21 16:05 INR 1.01 (0.8-1.3) 12/23/21 16:05 APTT 28.8 SECONDS (22.9-36.5) 12/23/21 16:05 PTT Comment - 12/23/21 16:05 Fibrinogen 421 mg/dL (239-489) 12/23/21 16:05 Sodium 144 mmol/L (136-145) 12/23/21 16:05 Corrected Sodium TNP 12/23/21 16:05 Potassium 3.0 mmol/L (3.5-5.1) L* 12/23/21 16:05 Chloride 106 mmol/L (98-107) 12/23/21 16:05 Carbon Dioxide 31.1 mmol/L (21-32) 12/23/21 16:05 BUN 26 mg/dL (7-18) H 12/23/21 16:05 Creatinine 1.41 mg/dL (0.55-1.02) H 12/23/21 16:05 Est GFR (MDRD) Af Amer 47 (>60) L 12/23/21 16:05 Est GFR (MDRD) Non-Af 39 (>60) L 12/23/21 16:05 Glucose 79 mg/dL (65-99) 12/23/21 16:05 Calcium 8.5 mg/dL (8.5-10.1) 12/23/21 16:05 Corrected Calcium TNP 12/23/21 16:05 Total Bilirubin 0.30 mg/dL (0.2-1.0) 12/23/21 16:05 AST 16 Units/L (15-37) 12/23/21 16:05 ALT 24 Units/L (12-78) 12/23/21 16:05 Alkaline Phosphatase 112 Units/L (46-116) 12/23/21 16:05 Creatine Kinase 133 Units/L (26-192) 12/23/21 16:05 CK-MB (CK-2) 2.3 ng/mL (0-4.0) 12/23/21 16:05 CK/CKMB % Calc 1.7 % (<4) 12/23/21 16:05 Troponin I High Sens 17.2 ng/L (4.0-60.0) 12/23/21 16:05 Total Protein 7.0 g/dL (6.4-8.2) 12/23/21 16:05 Albumin 3.6 g/dL (3.4-5.0) 12/23/21 16:05 Globulin 3.4 g/dL (2.5-4.5) 12/23/21 16:05 Albumin/Globulin Ratio 1.1 Ratio (1.1-2.1) 12/23/21 16:05 EKG Rate: 71 [place]: Normal Rhythm: NSR Block: None Hypertrophy: LVH ST: Normal Opioid Opioid Risk Tool Age ([place] box if 16-45): No History of Preadolescent Sexual Abuse: No Total: 0 Total Score Risk Category: Low Risk Copyright: John RENE predicting aberrant behaviors Diagnosis Discharge Problem: 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 Service Date: 12/23/21 Service Time: 1606 BRAIN W/O CON CLINICAL INDICATION: R/O STROKE TECHNIQUE: Images were obtained through the head per standard CT protocol. Multiplanar reformatted images were generated from the CT dataset. Dose reduction techniques including Automated Exposure Control (AEC) and adjustment of mA and kV were utlized. COMPARISON:None FINDINGS: Diffuse patchy and confluent periventricular and subcortical hypoattenuation with associated volume loss . There is no evidence of acute infarction, intracranial hemorrhage, mass or mass effect, or abnormal extra-axial collection . The density of the larger dural venous sinuses is normal. Age-related, ex-vacuo dilatation of the ventricles and sulci . The skull base and calvarium are normal . The included paranasal sinuses and mastoid air cells are predominantly clear . IMPRESSION: 1. No acute intracranial abnormality. Chronic microangiopathic changes and ex vacuo dilatation of the ventricles and sulci. If there is definite, focal, acute neurologic deficit, MRI with diffusion-weighted imaging would be more sensitive for detection of acute stroke. [] Electronically signed by: PATSY SILVA (Dec 23, 2021 17:09:10) Report Electronically signed: 12/23/21 [id number] CC: Nery Chavez
[2021-12-23] MEDS ORDERED: LOPRESSOR INJ 5 MG AMP ONE (16:15)
[2021-12-23] MEDS ORDERED: NS 1,000 ML IV 1,000 ML ONE (16:15)
[2021-12-23 16:18] LABS: BASOPHILS # (AUTO) 0.1 X10^3/uL (0.0-0.1); BASOPHILS % (AUTO) 0.6 % (0.2-1.0); EOSINOPHILS # (AUTO) 0.5 x10^3/uL (0.0-0.2); HEMATOCRIT 37.9 % (36.0-47.0); HEMOGLOBIN 12.4 g/dL (12.0-16.0); LYMPHOCYTES # (AUTO) 3.3 X10^3/uL (1.3-2.9); LYMPHOCYTES % (AUTO) 21.3 % (21.0-51.0); MEAN CORPUSCULAR HEMOGLOBIN 27.2 pg (27.0-34.0); MEAN CORPUSCULAR HGB CONC 32.8 g/dL (33.0-35.0); MEAN PLATELET VOLUME 8.2 fL (7.4-11.0); MONOCYTES # (AUTO) 1.3 x10^3/uL (0.3-0.8); MONOCYTES % (AUTO) 8.1 % (0.0-13.0); NEUTROPHILS # (AUTO) 10.4 x10^3/uL (2.2-4.8); RED BLOOD COUNT 4.57 X10^6/uL (3.5-5.4); WHITE BLOOD COUNT 15.5 X10^3/uL (3.6-10.0)
[2021-12-23] MEDS: NS 1,000 ML IV 1,000 ML IV SCH (16:29)
[2021-12-23 16:39] LABS: ALANINE AMINOTRANSFERASE 24 Units/L (12-78); ALBUMIN 3.6 g/dL (3.4-5.0); ALKALINE PHOSPHATASE 112 Units/L (46-116); ASPARTATE AMINO TRANSFERASE 16 Units/L (15-37); BLOOD UREA NITROGEN 26 mg/dL (7-18); CALCIUM 8.5 mg/dL (8.5-10.1); CARBON DIOXIDE 31.1 mmol/L (21-32); CHLORIDE 106 mmol/L (98-107); CKMB % 1.7 % (<4); CREATINE KINASE 133 Units/L (26-192); CREATINE KINASE MB 2.3 ng/mL (0-4.0); CREATININE 1.41 mg/dL (0.55-1.02); SODIUM 144 mmol/L (136-145); eGFR NON BLACK RACES 39 (>60)
--- NOTE | 2021-12-23 17:09 | CT ---
BRAIN W/O CONCLINICAL INDICATION: R/O STROKETECHNIQUE: Images were obtained through the head per standard CT protocol. Multiplanar reformatted images were generated from the CT dataset. Dose reduction techniques including Automated Exposure Control (AEC) and adjustment of mA and kV were utlized.COMPARISON:NoneFINDINGS:Diffuse patchy and confluent periventricular and subcortical hypoattenuation with associated volume loss . There is no evidence of acute infarction, intracranial hemorrhage, mass or mass effect, or abnormal extra-axial collection . The density of the larger dural venous sinuses is normal. Age-related, ex-vacuo dilatation of the ventricles and sulci . The skull base and calvarium are normal . The included paranasal sinuses and mastoid air cells are predominantly clear .IMPRESSION:1. No acute intracranial abnormality. Chronic microangiopathic changes and ex vacuo dilatation of the ventricles and sulci. If there is definite, focal, acute neurologic deficit, MRI with diffusion-weighted imaging would be more sensitive for detection of acute stroke.[]Electronically signed by: PATSY SILVA (Dec 23, 2021 17:09:10)
--- NOTE | 2021-12-23 18:04 | RAD ---
CHEST, 1 VIEWHISTORY:STROKE SYMPTOMSStudy: Single view of the chest.Comparison:NoneFindings:Cardiomegaly and pulmonary vascular congestion. No focal consolidations, pleural effusions or pneumothorax. Osseous structures demonstrate no acute abnormality.IMPRESSION:1.Cardiomegaly and pulmonary vascular congestion.Electronically signed by: PATSY SILVA (Dec 23, 2021 18:03:45)
[2021-12-23] MEDS ORDERED: KLOR-CON PO ONE ×2 (18:07→21:00)
[2021-12-23] MEDS ORDERED: KLOR-CON ONE (18:13)
[2021-12-23 19:05] LABS: BILIRUBIN,URINE NEGATIVE (NEGATIVE); BLOOD/HEMOGLOBIN,URINE NEGATIVE (NEGATIVE); GLUCOSE, URINE NEGATIVE (NEGATIVE); KETONES,URINE NEGATIVE (NEGATIVE); LEUKOCYTE ESTERASE ,URINE NEGATIVE (NEGATIVE); NITRITES,URINE NEGATIVE (NEGATIVE); PROTEIN,URINE NEGATIVE (NEGATIVE); UROBILINOGEN,URINE NORMAL (NORMAL)
[2021-12-23 19:31] LABS: APPEARANCE,URINE CLEAR (CLEAR); COLOR,URINE PALE YELLOW (YELLOW)
[2021-12-23 20:11] VITALS: BMI 34.2
[2021-12-24] MEDS ORDERED: POTASSIUM CHL 40 MEQ/NS 0.45% 500 ML IV PRN (00:30)
[2021-12-24] MEDS ORDERED: K-DUR TAB 20 MEQ PO PRN (00:30)
[2021-12-24] MEDS ORDERED: MICRO K EXTEN CAP 10 MEQ PO PRN (00:30)
[2021-12-24] MEDS ORDERED: POTASSIUM CHL 60 MEQ/NS 0.45% 500 ML IV PRN (00:30)
[2021-12-24] MEDS ORDERED: KLOR-CON PO PRN (00:30)
[2021-12-24] MEDS ORDERED: K-RIDER 10 MEQ/NS 100 ML 10 MEQ/100 ML BAG IV PRN (00:30)
[2021-12-24] MEDS ORDERED: POTASSIUM CHLORIDE LIQ 20 MEQ UDC PO PRN (00:30)
[2021-12-24] MEDS: NS 1,000 ML IV 1,000 ML IV SCH (01:17)
[2021-12-24 06:48] LABS: BASOPHILS # (AUTO) 0.1 X10^3/uL (0.0-0.1); BASOPHILS % (AUTO) 0.8 % (0.2-1.0); EOSINOPHILS # (AUTO) 0.6 x10^3/uL (0.0-0.2); EOSINOPHILS % (AUTO) 5.3 % (0.9-2.9); HEMATOCRIT 34.2 % (36.0-47.0); HEMOGLOBIN 11.2 g/dL (12.0-16.0); LYMPHOCYTES # (AUTO) 3.6 X10^3/uL (1.3-2.9); LYMPHOCYTES % (AUTO) 29.8 % (21.0-51.0); MEAN CORPUSCULAR HEMOGLOBIN 27.5 pg (27.0-34.0); MEAN CORPUSCULAR HGB CONC 32.9 g/dL (33.0-35.0); MEAN CORPUSCULAR VOLUME 83.6 fL (80.0-100.0); MEAN PLATELET VOLUME 8.7 fL (7.4-11.0); MONOCYTES # (AUTO) 1.1 x10^3/uL (0.3-0.8); MONOCYTES % (AUTO) 9.3 % (0.0-13.0); NEUTROPHILS # (AUTO) 6.7 x10^3/uL (2.2-4.8); NEUTROPHILS % (AUTO) 54.8 % (42.0-75.0); RED BLOOD COUNT 4.09 X10^6/uL (3.5-5.4); RED CELL DISTRIBUTION WIDTH 15.4 % (11.6-16.5); WHITE BLOOD COUNT 12.2 X10^3/uL (3.6-10.0)
[2021-12-24 06:52] LABS: ALANINE AMINOTRANSFERASE 20 Units/L (12-78); ALBUMIN 2.9 g/dL (3.4-5.0); ALKALINE PHOSPHATASE 92 Units/L (46-116); ASPARTATE AMINO TRANSFERASE 18 Units/L (15-37); BLOOD UREA NITROGEN 21 mg/dL (7-18); CALCIUM 8.1 mg/dL (8.5-10.1); CARBON DIOXIDE 29.9 mmol/L (21-32); CHLORIDE 110 mmol/L (98-107); CREATININE 1.08 mg/dL (0.55-1.02); SODIUM 145 mmol/L (136-145); TOTAL PROTEIN 5.9 g/dL (6.4-8.2); eGFR NON BLACK RACES 53 (>60)
[2021-12-24] MEDS: ASPIRIN PO SCH (08:33)
[2021-12-24] MEDS ORDERED: LIPITOR TAB 40 MG PO SCH (09:00)
[2021-12-24] MEDS ORDERED: ULTRAM PO PRN (09:26)
[2021-12-24] MEDS: ENALAPRIL HYDROCHLOROTHIAZIDE PO SCH (10:30)
[2021-12-24] MEDS: FLONASE NASAL SPRAY ENOSTRIL SCH (11:00)
[2021-12-24] MEDS: PLAVIX PO SCH (11:00)
[2021-12-24] MEDS: PEPCID TAB 20 MG PO SCH ×2 (11:00→20:56)
--- NOTE | 2021-12-24 13:04 | DR.H&P ---
H&P History & Physical for Day of: H&P Date: 12/24/21 Chief Complaint Chief Complaint: left sided weakness, facial droop Allergies Allergies Allergy/AdvReac Type Severity Reaction Status Date / Time No Known Drug Allergies Allergy Verified 09/03/17 09:54 History of Present Illness History of Present Illness: Ms De Guzman is a 71y/ female with a PMH of HTN, OA, HLD, Hx of CVA and GERD presented with left sided weakness, slurred speech and facial droop. Her Sx started Friday, patient presented to the ER on Friday. She reports noticing left arm weakness, facial droop and slurred speech. She denies being sick for the past few days. She states she fell few weeks ago and hurt her right arm. Denies fever or chill. Denies N/V/D. She denies chest pain or SOB. She denies any trouble swallowing besides her chronic dysphagia. She continues to have left arm weakness and facial droop. Her speech seems to be mostly clear. She is awake, alert and oriented and able to answer questions. She states her left arm weakness started yester afternoon but as per ER notes it started on 12/22/21. In the ER, CT-head did not show any acute process. Neuro was consulted as per stroke protocol. Advised to admit for MRI, patient not a candidate for tPA due to being outside the window from symptom onset. Patient was admitted for further management. She was given asa 325 mg and started on gentle hydration. Labs/imaging reviewed Plan: follow MRI-brain. Echo and carotid U/S done in Sep 2021. Neuro checks q4H and telemetry. Speech, PT/OT consults. Monitor BP. SCDs. Fall precautions.Resume home medications. Monitor AM labs/imaging. Past Medical History Past Medical History: Arthritis, CVA, GERD and Hypertension Past Surgical History Surgical History: Tonsillectomy Family History Family Medical History: Hypertension Social History Does patient currently use any type of tobacco product: No Have you used tobacco products in the last 12 months: No Type of Tobacco Use: None Does any household member use tobacco: No Alcohol Use: None Drug Use: None Prescription drug monitoring program results: PDMP reviewed and no concerns identified Medications Home Medications: No Known Drug Allergies Allergy (Verified 09/03/17 09:54) CONTINUE taking the following medications atorvastatin [Lipitor] 20 mg PO QHS 12/23/21 [History] enalapril-hydrochlorothiazide 1 tab PO DAILY 12/24/21 [History] Labs Result Diagrams: 12/24/21 05:37 12/24/21 05:37 Labs: Laboratory WBC 12.2 X10^3/uL (3.6-10.0) H 12/24/21 05:37 RBC 4.09 X10^6/uL (3.5-5.4) 12/24/21 05:37 Hgb 11.2 g/dL (12.0-16.0) L 12/24/21 05:37 Hct 34.2 % (36.0-47.0) L 12/24/21 05:37 MCV 83.6 fL (80.0-100.0) 12/24/21 05:37 MCH 27.5 pg (27.0-34.0) 12/24/21 05:37 MCHC 32.9 g/dL (33.0-35.0) L 12/24/21 05:37 RDW 15.4 % (11.6-16.5) 12/24/21 05:37 Plt Count 204 X10^3/uL (150.0-450.0) 12/24/21 05:37 MPV 8.7 fL (7.4-11.0) 12/24/21 05:37 Neut % (Auto) 54.8 % (42.0-75.0) 12/24/21 05:37 Lymph % (Auto) 29.8 % (21.0-51.0) 12/24/21 05:37 [place] % (Auto) 9.3 % (0.0-13.0) 12/24/21 05:37 Eos % (Auto) 5.3 % (0.9-2.9) H 12/24/21 05:37 Baso % (Auto) 0.8 % (0.2-1.0) 12/24/21 05:37 Neut # (Auto) 6.7 x10^3/uL (2.2-4.8) H 12/24/21 05:37 Lymph # (Auto) 3.6 X10^3/uL (1.3-2.9) H 12/24/21 05:37 [place] # (Auto) 1.1 x10^3/uL (0.3-0.8) H 12/24/21 05:37 Eos # (Auto) 0.6 x10^3/uL (0.0-0.2) H 12/24/21 05:37 Baso # (Auto) 0.1 X10^3/uL (0.0-0.1) 12/24/21 05:37 Absolute Nucleated RBC 0.1 /100WBC 12/24/21 05:37 PT 12.8 SECONDS (11.8-14.3) 12/23/21 16:05 INR Target Range - 12/23/21 16:05 INR 1.01 (0.8-1.3) 12/23/21 16:05 APTT 28.8 SECONDS (22.9-36.5) 12/23/21 16:05 PTT Comment - 12/23/21 16:05 Fibrinogen 421 mg/dL (239-489) 12/23/21 16:05 Sodium 145 mmol/L (136-145) 12/24/21 05:37 Corrected Sodium TNP 12/24/21 05:37 Potassium 4.2 mmol/L (3.5-5.1) 12/24/21 05:37 Chloride 110 mmol/L (98-107) H 12/24/21 05:37 Carbon Dioxide 29.9 mmol/L (21-32) 12/24/21 05:37 BUN 21 mg/dL (7-18) H 12/24/21 05:37 Creatinine 1.08 mg/dL (0.55-1.02) H 12/24/21 05:37 Est GFR (MDRD) Af Amer > 60 (>60) 12/24/21 05:37 Est GFR (MDRD) Non-Af 53 (>60) L 12/24/21 05:37 Glucose 99 mg/dL (65-99) 12/24/21 05:37 Calcium 8.1 mg/dL (8.5-10.1) L 12/24/21 05:37 Corrected Calcium 9.0 mg/dL (8.5-10.1) 12/24/21 05:37 Magnesium 2.1 mg/dL (1.7-2.9) 12/23/21 16:05 Total Bilirubin 0.30 mg/dL (0.2-1.0) 12/24/21 05:37 AST 18 Units/L (15-37) 12/24/21 05:37 ALT 20 Units/L (12-78) 12/24/21 05:37 Alkaline Phosphatase 92 Units/L (46-116) 12/24/21 05:37 Creatine Kinase 133 Units/L (26-192) 12/23/21 16:05 CK-MB (CK-2) 2.3 ng/mL (0-4.0) 12/23/21 16:05 CK/CKMB % Calc 1.7 % (<4) 12/23/21 16:05 Troponin I High Sens 17.2 ng/L (4.0-60.0) 12/23/21 16:05 Total Protein 5.9 g/dL (6.4-8.2) L 12/24/21 05:37 Albumin 2.9 g/dL (3.4-5.0) L 12/24/21 05:37 Globulin 3.0 g/dL (2.5-4.5) 12/24/21 05:37 Albumin/Globulin Ratio 1.0 Ratio (1.1-2.1) L 12/24/21 05:37 Specimen Type Clean catch urine 12/23/21 18:13 Urine Color Pale yellow (YELLOW) 12/23/21 18:13 Urine Appearance Clear (CLEAR) 12/23/21 18:13 Urine pH 5.0 (5.0 - 8.0) 12/23/21 18:13 Ur Specific [place] 1.010 (1.000-1.030) 12/23/21 18:13 Urine Protein Negative (NEGATIVE) 12/23/21 18:13 Urine Glucose (UA) Negative (NEGATIVE) 12/23/21 18:13 Urine Ketones Negative (NEGATIVE) 12/23/21 18:13 Urine Occult Blood Negative (NEGATIVE) 12/23/21 18:13 Urine Nitrite Negative (NEGATIVE) 12/23/21 18:13 Urine Bilirubin Negative (NEGATIVE) 12/23/21 18:13 Urine Urobilinogen Normal (NORMAL) 12/23/21 18:13 Ur Leukocyte Esterase Negative (NEGATIVE) 12/23/21 18:13 Review of Systems Constitutional: Weakness Eyes: No Symptoms Reported ENT: No Symptoms Reported Respiratory: No Symptoms Reported Cardiovascular: No Symptoms Reported Gastrointestinal: No Symptoms Reported Genitourinary: No Symptoms Reported Musculoskeletal: Arm Pain and Other (left arm weakness ) Skin: No Symptoms Reported Neurological: Weakness, Incoordination, Change in Speech and Confusion Physical Exam Vital Signs: Temperature 98.1 F Pulse Rate [Left Radial] 88 Pulse Rate 67 Respiratory Rate 24 Blood Pressure [Left Arm] 186/84 Blood Pressure [Right Arm] 146/71 Blood Pressure 169/74 O2 Sat by Pulse Oximetry 98 Oriented: Normal Eyes: Normal Ear: Normal Nose: Normal Throat: Normal Respiratory: Clear Throughout Cardiovascular: Normal Auscultation: Bowel Sounds: Normal Palpation: Normal Tenderness: Normal Skin: Normal Musculoskeletal: Motor Deficit (LUE 3/5 strength LLE 4/5 strength RUE + RLE: 5/5 strength. Sensation intact on both left and right side. Limited ROM LUE. Left Facial droop present. Clear speech) and Instability Psychiatric: Normal Mood Description: Calm Affect: Normal Speech Pattern: Clear and Appropriate Assessment/Plan (1) Acute CVA (cerebrovascular accident): Status: Acute (2) Left-sided weakness: Status: Acute (3) Fall: Qualifiers: Encounter type: subsequent encounter Qualified Code(s): W19.XXXD - Unspecified fall, subsequent encounter Status: Acute (4) Hypertension: Qualifiers: Hypertension type: essential hypertension Qualified Code(s): I10 - Essential (primary) hypertension Status: Acute (5) Generalized OA: Status: Acute (6) HLD (hyperlipidemia): Qualifiers: Hyperlipidemia type: unspecified Qualified Code(s): E78.5 - Hyperlipidemia, unspecified Status: Acute (7) History of CVA (cerebrovascular accident): Status: Acute Review H&P Reviewed: Yes Patient was examined?: Yes
--- NOTE | 2021-12-24 13:34 | MRI ---
HISTORYleft side weakness, CVASTUDYMRI BRAIN without IV contrastCOMPARISONCT 12/23/2021TECHNIQUEMultiplanar multi-sequence MRI of the brain was obtained without administration of IV contrast.FINDINGSMotion limits the study. The cerebellar tonsils are normally positioned. Pituitary gland is normal in size. [Prominent diffuse volume loss is seen in the brain with compensatory enlargement of the ventricular system.]There are foci of restricted diffusion seen in the right putamen and internal capsule, right periatrial white matter, and right montoya radiata. These are areas of probable recent CVA. Other moderate chronic small vessel ischemic changes are suspected in the supratentorial white matter and thalami. [No evidence of intracranial hemorrhage.]Paranasal sinuses and mastoid air cells appear clear. There is diminished flow void in the distal right ICA which may be due to significant stenosis in this region or possibly in the right ICA in the neck. Recommend further evaluation with CTA head and neck.IMPRESSIONRecent CVA are seen in the right montoya radiata and right putamen internal capsule. Other recent CVA are seen in the right montoya radiata and right periatrial white matter. No significant mass effect or hemorrhagic transformation is seen.Diminished flow void in the distal right ICA suggest possible stenosis in this region or in the right ICA in the neck. Recommend further evaluation with CTA head and neck.Electronically signed by: Jasper Malone (Dec 24, 2021 13:32:37)
[2021-12-24] MEDS ORDERED: SINGULAIR TAB 10 MG PO SCH (21:00)
[2021-12-25 06:16] LABS: CALCIUM 8.1 mg/dL (8.5-10.1); CARBON DIOXIDE 28.2 mmol/L (21-32); CREATININE 1.28 mg/dL (0.55-1.02)
[2021-12-25 06:19] LABS: BASOPHILS # (AUTO) 0.1 X10^3/uL (0.0-0.1); EOSINOPHILS # (AUTO) 0.6 x10^3/uL (0.0-0.2); EOSINOPHILS % (AUTO) 4.3 % (0.9-2.9); HEMATOCRIT 34.2 % (36.0-47.0); HEMOGLOBIN 11.2 g/dL (12.0-16.0); LYMPHOCYTES # (AUTO) 3.6 X10^3/uL (1.3-2.9); LYMPHOCYTES % (AUTO) 26.4 % (21.0-51.0); MEAN CORPUSCULAR HEMOGLOBIN 27.6 pg (27.0-34.0); MEAN CORPUSCULAR HGB CONC 32.9 g/dL (33.0-35.0); MEAN CORPUSCULAR VOLUME 83.9 fL (80.0-100.0); MEAN PLATELET VOLUME 8.4 fL (7.4-11.0); MONOCYTES # (AUTO) 1.1 x10^3/uL (0.3-0.8); MONOCYTES % (AUTO) 8.1 % (0.0-13.0); NEUTROPHILS # (AUTO) 8.2 x10^3/uL (2.2-4.8); NEUTROPHILS % (AUTO) 60.2 % (42.0-75.0); RED BLOOD COUNT 4.07 X10^6/uL (3.5-5.4); RED CELL DISTRIBUTION WIDTH 15.5 % (11.6-16.5); WHITE BLOOD COUNT 13.7 X10^3/uL (3.6-10.0)
[2021-12-25 07:59] VITALS: BP 154/67
--- NOTE | 2021-12-25 08:06 | CT ---
PROCEDURE: CTA Neck .HISTORY: Cerebral vascular accident with left upper extremity monoplegia.TECHNIQUE: Axial images were performed through the neck with the administration of IV contrast with multiplanar reformations. 3D and MIPS reconstructions were performed and reviewed. Dose reduction techniques including Automated Exposure Control (AEC) and adjustment of mA and kV were utilized .COMPARISON: None .TECHNICAL QUALITY: Satisfactory .NOTE: Assessment of carotid artery stenosis is based on calculations of the [place] Symptomatic Carotid Endarterectomy Trial (NASCET) stenosis criteria.FINDINGS:Mild atherosclerosis visualized aortic arch.Trace atherosclerosis at the origin of the right internal carotid artery with no narrowing. No other abnormality involving right carotid arteries of the neck.Mild atherosclerosis origin of the left internal carotid artery with no narrowing. No other abnormality involving left carotid arteries of the neck.Mild atherosclerotic calcifications origin of the right vertebral artery without significant narrowing. No other abnormality involving right or left vertebral arteries of the neck.No other soft tissue abnormality involving the neck.IMPRESSION:No significant vascular abnormality identified.Electronically signed by: Abdon Harding (Dec 25, 2021 08:05:52)
--- NOTE | 2021-12-25 08:16 | CT ---
PROCEDURE: CTA Head .HISTORY: Cerebral vascular accident with left upper extremity monoplegia.TECHNIQUE: Axial images were performed through the head with the administration of IV contrast with multiplanar reformations . 3D and MIPS reconstructions were performed and reviewed. Dose reduction techniques including Automated Exposure Control (AEC) and adjustment of mA and kV were utilized .COMPARISON: None.TECHNICAL QUALITY: Satisfactory .FINDINGS:Dbga-bz-[id number] atherosclerotic calcifications involving right carotid siphon with occlusion of the carotid terminus secondary to atherosclerosis. Perfusion of the right anterior and middle cerebral arteries through the anterior communicating and posterior communicating arteries, respectively. Anterior and middle cerebral arteries on the right show no narrowing or occlusion.Uljr-[id number] atherosclerotic calcifications left carotid siphon without significant narrowing. Left anterior and middle cerebral arteries show normal enhancement with no narrowing or occlusion.[id number] atherosclerosis both vertebral arteries intracranially with occlusion of the distal left vertebral artery. Probable significant stenosis secondary to atherosclerosis involving mid to distal right vertebral artery. Small basilar artery with no other abnormality. Right posterior cerebral artery is unremarkable. Small left posterior cerebral arteries with decreased enhancement probably related atherosclerosis at the origin.No aneurysm or arterial venous malformation.Dural sinuses show normal enhancement with no clot.No abnormal enhancement of the brain.IMPRESSION:1. 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 Perfusion of the right anterior and middle cerebral arteries through the anterior and posterior communicating arteries, respectively with decreased flow through both vessels.3. Small left posterior cerebral artery with decreased flow secondary to atherosclerosis at the origin.4. Occluded distal left vertebral artery.5. Hemodynamically significant stenosis right vertebral artery secondary to atherosclerosis.Electronically signed by: Abdon Harding (Dec 25, 2021 08:15:41)
[2021-12-25] MEDS ORDERED: NS 1,000 ML IV 1,000 ML IV SCH (09:00)
[2021-12-25] MEDS ORDERED: LIPITOR TAB 40 MG PO SCH (09:00)
[2021-12-25] MEDS: FLONASE NASAL SPRAY ENOSTRIL SCH (09:20)
[2021-12-25] MEDS: ENALAPRIL HYDROCHLOROTHIAZIDE PO SCH (09:20)
[2021-12-25] MEDS: PLAVIX PO SCH (09:20)
[2021-12-25] MEDS: ASPIRIN PO SCH (09:20)
[2021-12-25] MEDS: PEPCID TAB 20 MG PO SCH (09:21)
--- NOTE | 2021-12-25 09:42 | W.DIS.FURT ---
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 Her Sx started Friday afternoon, patient presented to the ER on Friday. She reports noticing left arm weakness, facial droop and slurred speech. She denies being sick for the past few days. She states she fell few weeks ago and hurt her right arm. Denies fever or chill. Denies N/V/D. She denies chest pain or SOB. She denies any trouble swallowing besides her chronic dysphagia. She continues to have left arm weakness and facial droop. Her speech seems to be mostly clear. She is awake, alert and oriented and able to answer questions. She states her left arm weakness started yesterday afternoon but as per ER notes it started on 12/22/21. In the ER, CT-head did not show any acute process. Neuro was consulted as per stroke protocol. Advised to admit for MRI, patient not a candidate for tPA due to being outside the window from symptom onset. Patient was admitted for further management. She was started on asa and hydration. She was admitted with telemetry and neurochecks. Her labs were monitored and electrolytes replaced as needed. PT/OT and speech were also consulted. MRI showed acute right sided CVA, CTA head and neck was recommended. CTA-head showed hemodynamically significant stenosis right vertebral artery secondary to atherosclerosis. CTA neck showed mild ICA stenosis but not significant narrowing. Due to these results, it was decided to transfer patient to higher level of care with neurology. Patient's care was discussed with hospitalist in [facility] and patient was accepted for transfer. She was stable at the time of discharge. Time spent for clinical assessment, reviewing labs/imaging, physical exam, decision making, consulting other providers and documentation greater than 75 mins. Vital Signs: Vital Signs (72 hours) 12/23/21 15:47 12/23/21 16:03 12/23/21 16:25 Temperature 97.9 F Pulse Rate 75 74 68 Pulse Rate [Brachial] Pulse Rate [Left Radial] Respiratory Rate 20 21 Blood Pressure 182/86 171/68 Blood Pressure [Left Arm] Blood Pressure [Right Arm] O2 Sat by Pulse Oximetry 99 100 100 12/23/21 16:26 12/23/21 16:30 12/23/21 16:52 Temperature Pulse Rate 65 63 Pulse Rate [Brachial] Pulse Rate [Left Radial] Respiratory Rate 30 H Blood Pressure 171/68 178/74 Blood Pressure [Left Arm] Blood Pressure [Right Arm] O2 Sat by Pulse Oximetry 94 L 98 12/23/21 17:00 12/23/21 17:04 12/23/21 17:15 Temperature Pulse Rate 60 61 61 Pulse Rate [Brachial] Pulse Rate [Left Radial] Respiratory Rate 20 21 12 Blood Pressure 167/73 158/70 Blood Pressure [Left Arm] Blood Pressure [Right Arm] O2 Sat by Pulse Oximetry 98 98 91 L 12/23/21 17:30 12/23/21 17:45 12/23/21 18:00 Temperature Pulse Rate 58 L 60 66 Pulse Rate [Brachial] Pulse Rate [Left Radial] Respiratory Rate 16 9 L 18 Blood Pressure 164/70 156/70 148/69 Blood Pressure [Left Arm] Blood Pressure [Right Arm] O2 Sat by Pulse Oximetry 89 L 99 92 L 12/23/21 18:16 12/23/21 18:30 12/23/21 18:45 Temperature Pulse Rate 69 66 67 Pulse Rate [Brachial] Pulse Rate [Left Radial] Respiratory Rate 17 26 H Blood Pressure 139/67 169/74 Blood Pressure [Left Arm] Blood Pressure [Right Arm] O2 Sat by Pulse Oximetry 98 12/23/21 19:15 12/24/21 00:00 12/24/21 04:00 Temperature 97.9 F 98.0 F 97.8 F Pulse Rate Pulse Rate [Brachial] Pulse Rate [Left Radial] 67 65 65 Respiratory Rate 21 18 21 Blood Pressure Blood Pressure [Left Arm] 138/70 117/57 136/72 Blood Pressure [Right Arm] O2 Sat by Pulse Oximetry 95 92 L 94 L 12/24/21 08:00 12/24/21 16:00 12/24/21 20:00 Temperature 98.1 F 98.1 F 98.7 F Pulse Rate Pulse Rate [Brachial] 76 Pulse Rate [Left Radial] 88 88 Respiratory Rate 24 24 20 Blood Pressure Blood Pressure [Left Arm] 186/84 186/84 Blood Pressure [Right Arm] 173/78 O2 Sat by Pulse Oximetry 98 98 98 12/25/21 00:00 12/25/21 04:00 12/25/21 07:58 Temperature 98.8 F 98.6 F 98.0 F Pulse Rate Pulse Rate [Brachial] 74 79 84 Pulse Rate [Left Radial] Respiratory Rate 18 18 18 Blood Pressure Blood Pressure [Left Arm] 154/67 Blood Pressure [Right Arm] 175/77 141/66 O2 Sat by Pulse Oximetry 97 99 96 Labs: Laboratory Last Values WBC 13.7 X10^3/uL (3.6-10.0) H 12/25/21 05:44 RBC 4.07 X10^6/uL (3.5-5.4) 12/25/21 05:44 Hgb 11.2 g/dL (12.0-16.0) L 12/25/21 05:44 Hct 34.2 % (36.0-47.0) L 12/25/21 05:44 MCV 83.9 fL (80.0-100.0) 12/25/21 05:44 MCH 27.6 pg (27.0-34.0) 12/25/21 05:44 MCHC 32.9 g/dL (33.0-35.0) L 12/25/21 05:44 RDW 15.5 % (11.6-16.5) 12/25/21 05:44 Plt Count 252 X10^3/uL (150.0-450.0) 12/25/21 05:44 MPV 8.4 fL (7.4-11.0) 12/25/21 05:44 Neut % (Auto) 60.2 % (42.0-75.0) 12/25/21 05:44 Lymph % (Auto) 26.4 % (21.0-51.0) 12/25/21 05:44 [place] % (Auto) 8.1 % (0.0-13.0) 12/25/21 05:44 Eos % (Auto) 4.3 % (0.9-2.9) H 12/25/21 05:44 Baso % (Auto) 1.0 % (0.2-1.0) 12/25/21 05:44 Neut # (Auto) 8.2 x10^3/uL (2.2-4.8) H 12/25/21 05:44 Lymph # (Auto) 3.6 X10^3/uL (1.3-2.9) H 12/25/21 05:44 [place] # (Auto) 1.1 x10^3/uL (0.3-0.8) H 12/25/21 05:44 Eos # (Auto) 0.6 x10^3/uL (0.0-0.2) H 12/25/21 05:44 Baso # (Auto) 0.1 X10^3/uL (0.0-0.1) 12/25/21 05:44 Absolute Nucleated RBC 0.0 /100WBC 12/25/21 05:44 PT 12.8 SECONDS (11.8-14.3) 12/23/21 16:05 INR Target Range - 12/23/21 16:05 INR 1.01 (0.8-1.3) 12/23/21 16:05 APTT 28.8 SECONDS (22.9-36.5) 12/23/21 16:05 PTT Comment - 12/23/21 16:05 Fibrinogen 421 mg/dL (239-489) 12/23/21 16:05 Sodium 143 mmol/L (136-145) 12/25/21 05:44 Corrected Sodium 144 mmol/L (136-145) 12/25/21 05:44 Potassium 3.4 mmol/L (3.5-5.1) L 12/25/21 05:44 Chloride 108 mmol/L (98-107) H 12/25/21 05:44 Carbon Dioxide 28.2 mmol/L (21-32) 12/25/21 05:44 BUN 17 mg/dL (7-18) 12/25/21 05:44 Creatinine 1.28 mg/dL (0.55-1.02) H 12/25/21 05:44 Est GFR (MDRD) Af Amer 53 (>60) L 12/25/21 05:44 Est GFR (MDRD) Non-Af 44 (>60) L 12/25/21 05:44 Glucose 150 mg/dL (65-99) H 12/25/21 05:44 Calcium 8.1 mg/dL (8.5-10.1) L 12/25/21 05:44 Corrected Calcium 9.0 mg/dL (8.5-10.1) 12/24/21 05:37 Magnesium 2.1 mg/dL (1.7-2.9) 12/23/21 16:05 Total Bilirubin 0.30 mg/dL (0.2-1.0) 12/24/21 05:37 AST 18 Units/L (15-37) 12/24/21 05:37 ALT 20 Units/L (12-78) 12/24/21 05:37 Alkaline Phosphatase 92 Units/L (46-116) 12/24/21 05:37 Creatine Kinase 133 Units/L (26-192) 12/23/21 16:05 CK-MB (CK-2) 2.3 ng/mL (0-4.0) 12/23/21 16:05 CK/CKMB % Calc 1.7 % (<4) 12/23/21 16:05 Troponin I High Sens 17.2 ng/L (4.0-60.0) 12/23/21 16:05 Total Protein 5.9 g/dL (6.4-8.2) L 12/24/21 05:37 Albumin 2.9 g/dL (3.4-5.0) L 12/24/21 05:37 Globulin 3.0 g/dL (2.5-4.5) 12/24/21 05:37 Albumin/Globulin Ratio 1.0 Ratio (1.1-2.1) L 12/24/21 05:37 Specimen Type Clean catch urine 12/23/21 18:13 Urine Color Pale yellow (YELLOW) 12/23/21 18:13 Urine Appearance Clear (CLEAR) 12/23/21 18:13 Urine pH 5.0 (5.0 - 8.0) 12/23/21 18:13 Ur Specific [place] 1.010 (1.000-1.030) 12/23/21 18:13 Urine Protein Negative (NEGATIVE) 12/23/21 18:13 Urine Glucose (UA) Negative (NEGATIVE) 12/23/21 18:13 Urine Ketones Negative (NEGATIVE) 12/23/21 18:13 Urine Occult Blood Negative (NEGATIVE) 12/23/21 18:13 Urine Nitrite Negative (NEGATIVE) 12/23/21 18:13 Urine Bilirubin Negative (NEGATIVE) 12/23/21 18:13 Urine Urobilinogen Normal (NORMAL) 12/23/21 18:13 Ur Leukocyte Esterase Negative (NEGATIVE) 12/23/21 18:13 Reason For Visit: CVA WITH LUE MONOPLEGIA, HYPOKALMIA, Discharge Date Discharge Date: 12/25/21 Discharge Diagnosis All Active Problems (Updated 12/27/21 @ 15:20 by Laura Jennings) Acute CVA (cerebrovascular accident) (Acute) HLD (hyperlipidemia) (Chronic) Fall (Acute) Left-sided weakness (Acute) Hypertension (Chronic) Ataxia (Acute) Dizziness (Acute) Esophageal stricture (Acute) 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 Pt is to keep follow up appointment as instructed and take medications as ordered. Discharge Medications Discharge Medications: No Known Drug Allergies Allergy (Verified 09/03/17 09:54) CONTINUE taking the following medications atorvastatin [Lipitor] 20 mg PO QHS 12/23/21 [History] enalapril-hydrochlorothiazide 1 tab PO DAILY 12/24/21 [History] Discharge Disposition Discharge Disposition: [facility] Discharge Condition: Stable Discharge Plan Discharge Plan Hospital Course: Ms De Guzman is a 71y/ female with a PMH of HTN, OA, HLD, Hx of CVA and GERD presented with left sided weakness, slurred speech and facial droop. Her Sx started Friday afternoon, patient presented to the ER on Friday afternoon. She reports noticing left arm weakness, facial droop and slurred speech. She denies being sick for the past few days. She states she fell few weeks ago and hurt her right arm. Denies fever or chill. Denies N/V/D. She denies chest pain or SOB. She denies any trouble swallowing besides her chronic dysphagia. She continues to have left arm weakness and facial droop. Her speech seems to be mostly clear. She is awake, alert and oriented and able to answer questions. She states her left arm weakness started yesterday afternoon but as per ER notes it started on 12/22/21. In the ER, CT-head did not show any acute process. Neuro was consulted as per stroke protocol. Advised to admit for MRI, patient not a candidate for tPA due to being outside the window from symptom onset. Patient was admitted for further management. She was started on asa and hydration. She was admitted with telemetry and neurochecks. Her labs were monitored and electrolytes replaced as needed. PT/OT and speech were also consulted. MRI showed acute right sided CVA, CTA head and neck was recommended. CTA-head showed hemodynamically significant stenosis right vertebral artery secondary to atherosclerosis. CTA neck showed mild ICA stenosis but not significant narrowing. Due to these results, it was decided to transfer patient to higher level of care with neurology. Patient's care was discussed with hospitalist in [facility] and patient was accepted for transfer. She was stable at the time of discharge. Time spent for clinical assessment, reviewing labs/imaging, physical exam, decision making, consulting other providers and documentation greater than 75 mins. Patient Disposition: [facility]F [facility] Condition: Stable Health Concerns: Post Hospitalization: new medications and changes needed to prevent readmission or further decline. Pt educated and given instructions on all concerns. Plan of Treatment: Continue with present treatment and follow up plan. Pt is to keep follow up appointment as instructed and take medications as ordered. Prescriptions: No Action tramadol 50 MG tablet 2 tab PO Q8H PRN (Reason: Pain) RF: 0 aspirin 325 MG tablet 325 mg PO DAILY Qty: 60 RF: 0 clopidogrel [Plavix] 75 MG tablet 75 mg PO DAILY Qty: 60 RF: 0 atorvastatin [Lipitor] 20 mg Tablet 20 mg PO QHS RF: 0 enalapril-hydrochlorothiazide 10-25 mg tablet 1 tab PO DAILY RF: 0 Orders to Discharge Patient Discharge Orders: Discharge by Transfer to Outside Facility (Routine); Ordered 12/25/21 Ordered By: Laura Jennings Follow ups/Referrals Follow ups/Referrals: Laura Jennings [Primary Care Provider] - 3 days
[2021-12-25] MEDS ORDERED: PYRIDIUM PO SCH (12:00)
== END 2021-12-25 12:45 | disposition short-term general hospital (02) ==
LOC: ER 15:46 → MED/SURG 15:46
PROVIDERS: ADMIT Family Medicine; ATTEND Internal Medicine